=== PATIENT | male | born 2000 | race Caucasian/White ===

== ENCOUNTER 2023-04-03 08:19 | Emergency (ER) | payer OTHER, SELFPAY ==
[2023-04-03 08:21] VITALS: BP 144/90; PULSE 92; TEMP 36.8; O2SAT 98
[2023-04-03 08:25] VITALS: BP 144/90; PULSE 92; RESP 17; TEMP 36.8; O2SAT 98
--- NOTE | 2023-04-03 08:50 | ED.GENADULT ---
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 No numbness or weakness to the hand. Related Data Allergies Allergy/AdvReac Type Severity Reaction Status Date / Time No Known Allergies Allergy Verified 04/03/23 08:24 Review of Systems Review of Systems: All systems reviewed & are unremarkable except as noted in HPI and below Constitutional: Constitutional: Denies fever(s) ENT: Denies dizziness Cardiovascular: Cardiovascular: Denies chest pain Respiratory: Respiratory: Denies dyspnea Exam Const: General: healthy appearing and no acute distress Nutritional Appearance: well nourished Orientation/consciousness: patient oriented x3 Eyes: Conjunctivae: conjunctivae normal Resp: Effort & Inspection: normal respiratory effort Cardio: Rate: regular rate Skin: General skin exam: normal color, no jaundice and no pallor Other: 6 cm full thickness lac to right volar forearm with exposed fat, 2 small cutaneous arterial bleeders and 1 moderate cutaneous venous bleeder. No fascia violation. Neuro: General: patient oriented x3 and moves all extremities Other: MUR intact Extrem: General: no edema Course Vital Signs Vital signs: Vital Signs Temperature 36.8 C 04/03/23 08:21 Pulse Rate 92 04/03/23 08:21 Blood Pressure 144/90 H 04/03/23 08:21 Pulse Oximetry 98 04/03/23 08:21 Oxygen Delivery Room Air 04/03/23 08:21 Temperature 36.8 C 04/03/23 08:25 Pulse Rate 92 04/03/23 08:25 Respiratory Rate 17 04/03/23 08:25 Blood Pressure 144/90 H 04/03/23 08:25 Pulse Oximetry 98 04/03/23 08:25 Oxygen Delivery Room Air 04/03/23 08:25 Procedures Laceration Laceration 1: Date: 04/03/23 Time: 09:25 Site: upper extremity Side (If applicable): right Size (cm): 6 Description: linear and other (full thickness dermis into hypodermal vessels (2 art, 1 vein). No fascia/muscle/tendon involvement. Bleeding controlled with epinephrine injected and direct proximal arterial pressure on brachial artery. Vessels tied off with 4-0 vicryl. ) Local Anesthetic: lidocaine 1% and with epi Amount of anesthesia used (mL): 10 Pre-repair: wound explored, irrigated and deep structures intact ====== Skin Level ====== Skin layer closed with: nylon Size (cm): 3-0 Number of sutures: 11 Technique: simple, interrupted ====== Subcutaneous Layer ====== Subcutaneous layer closed with: vicryl Size: 4-0 Number of sutures: 3 Technique: simple, interrupted ====== Muscle Layer ====== ====== Tendon Layer ====== Dressing: Nonadherent dressing. Procedure well tolerated, no complications. Medical Decision Making MDM Narrative Medical decision making narrative: Intermediate complexity laceration requiring proximal artery pressure and vessel tie off for hemostasis, two layer closure. Repaired, well approximated. no complications. 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 Differential Diagnosis Differential Diagnosis: laceration, contusion, hematoma, no evidence of fracture or retained foreign body Medical Records Medical records reviewed: Yes I reviewed the external patient's medical records. Vital Signs Vital Signs: Vital Signs Temperature 36.8 C 04/03/23 08:21 Pulse Rate 92 04/03/23 08:21 Blood Pressure 144/90 H 04/03/23 08:21 Pulse Oximetry 98 04/03/23 08:21 Oxygen Delivery Room Air 04/03/23 08:21 Temperature 36.8 C 04/03/23 08:25 Pulse Rate 92 04/03/23 08:25 Respiratory Rate 17 04/03/23 08:25 Blood Pressure 144/90 H 04/03/23 08:25 Pul
[2023-04-03 09:42] VITALS: BP 144/90; PULSE 92; RESP 17; TEMP 36.8; O2SAT 98
== END 2023-04-03 09:42 | disposition home or self-care (01) ==
PROVIDERS: Emergency Provider Emergency Medicine
DX: S51.811A Laceration without foreign body of right forearm, initial encounter (principal); W45.8XXA Other foreign body or object entering through skin, initial encounter; Y99.0 Civilian activity done for income or pay
CPT/HCPCS: 12032; 99283

== ENCOUNTER 2024-10-07 17:49 | Emergency (ER) | payer OTHER, SELFPAY ==
--- NOTE | ~2024-10-07 | XR_ITS ---
HISTORY: dropped pallet onto right 1st toe COMPARISON: None TECHNIQUE: 2 views of the right great toe were performed FINDINGS: No acute or subacute fracture. Joint spaces are preserved and alignment is maintained. Soft tissues are unremarkable without radiopaque foreign body or significant calcification. Age-appropriate mineralization. IMPRESSION: No acute fracture or dislocation. Reviewed, dictated and finalized at location A. [employer]
[2024-10-07 18:02] VITALS: BP 138/96; PULSE 78; RESP 16; TEMP 37.1; O2SAT 100
--- NOTE | 2024-10-07 18:03 | ED.LOWEXIN ---
HPI - Extremity Injury (Lower) General Chief Complaint: Extremity Injury, Lower Stated Complaint: INJURED R TOE Time Seen by Provider: 10/07/24 18:03 Source: patient Mode of arrival: ambulatory Limitations: no limitations History of Present Illness HPI Narrative: 24-year-old male presents with complaint of pain and pressure to right great toe. Patient states that he dropped a Pallet on foot this morning around 8:00 a.m.. Ambulatory with slight limp. Reports bruising in her toenail. Has had this in the past and had entire toenail removed. Range of motion and distal neurovascularly intact. All systems reviewed and negative except as noted above. Related Data Allergies Allergy/AdvReac Type Severity Reaction Status Date / Time No Known Allergies Allergy Verified 10/07/24 18:01 Review of Systems Review of Systems: CONSTITUTIONAL: Denies fever, chills, or sweats. EYES: Denies visual changes, redness, or discharge. ENT: Denies rhinorrhea, congestion, sore throat, or otalgia. CARDIOVASCULAR: Denies chest pain, palpitations, or edema. RESPIRATORY: Denies cough or dyspnea. GASTROINTESTINAL: Denies abdominal pain, nausea, vomiting, or diarrhea. GENITOURINARY: Denies dysuria or hematuria. SKIN: Denies rash or itching. MUSCULOSKELETAL: Denies back pain, joint pain, or myalgia. Reports pain to right great toe with blood under toenail. NEUROLOGIC: Denies headache, numbness, or weakness. PSYCHIATRIC: Denies anxiety or depression. All other systems reviewed are negative, except as documented in HPI. PMFSH Comments At time of signature, agree with nursing past medical, surgical, social and family history. There is no relevant family history pertinent to the presenting complaint. Exam Narrative: GENERAL: This is a well-nourished, well-developed patient, in no apparent distress. HEAD: normocephalic, atraumatic. EYES: PERRL. Sclera clear/white. Vision is grossly intact. EARS: External ears normal NOSE: External nose normal NECK: Neck supple, non-tender without lymphadenopathy, masses or thyromegaly. CARDIOVASCULAR: Regular rate and rhythm without murmurs, gallops, or rubs. RESPIRATORY: Clear to auscultation. Breath sounds equal bilaterally. No wheezes, rales, or rhonchi. SKIN: warm, Dry, intact with no suspicious lesions or rash, good texture and turgor. NEURO: awake, alert, and oriented to person, place and time. There were no obvious focal neurologic abnormalities. EXTREMITIES: Tenderness to distal aspect of right great toe. Subungual hematoma noted to right great great toenail. No deformity noted. Distal neurovascularly intact. Mild swelling. Course Course Level of Care: Express Care Visit Vital Signs Vital signs: Vital Signs Temperature 37.1 C 10/07/24 18:02 Pulse Rate 78 10/07/24 18:02 Respiratory Rate 16 10/07/24 18:02 Blood Pressure 138/96 H 10/07/24 18:02 Pulse Oximetry 100 10/07/24 18:02 Temperature 37.1 C 10/07/24 18:02 Pulse Rate 78 10/07/24 18:02 Respiratory Rate 16 10/07/24 18:02 Blood Pressure 138/96 H 10/07/24 18:02 Pulse Oximetry 100 10/07/24 18:02 Reviewed Procedures Other Procedure Procedure 1: Other Procedure: cautery pen used to drain subungual hematoma R great toenail. two punctures made with active bleeding MDM - Extremity Injury (Lower) MDM Narrative Medical decision making narrative: X-ray of right great toe negative for fracture. Small amount bleeding after drainage with Qasim upon of subungual hematoma. Patient continues to have pain. Recommend ibuprofen, elevation, ice. Please be advised this is a medical document. It is intended for [id number] communication. It is written in medical language and may contain unfamiliar abbreviations or verbiage. Medical documents are intended to carry relevant information, facts as evident, and the clinical opinion of the practitioner at the time of the encounter. This report may have been done utilizing a voice recognition system. Attempts have been made to correct errors. However, there may be uncorrected grammatical, spelling, and recognition errors present. The file time of this note does not necessarily represent the time of service. Imaging Data My impression: Agree with radiologist Radiologist's impression: HISTORY: dropped pallet onto right 1st toe COMPARISON: None TECHNIQUE: 2 views of the right great toe were performed FINDINGS: No acute or subacute fracture. Joint spaces are preserved and alignment is maintained. Soft tissues are unremarkable without radiopaque foreign body or significant calcification. Age-appropriate mineralization. IMPRESSION: No acute fracture or dislocation. Discharge Plan Discharge Clinical Impression: Subungual hematoma of great toe of right foot, Contusion of great toe Patient Disposition: Home, Self-Care Condition: Stable Instructions: Subungual Hematoma (ED) Additional Instructions: The x-ray of your right great toe was negative for fracture. Take ibuprofen every 6-8 hours as needed for pain. Take antibiotic as prescribed to prevent infection. Elevate when at rest. Apply ice as needed for pain. Follow-up with your doctor if pain is not improving. For any worsening of your symptoms go to the ER. Patient Language: Mongolian Prescriptions: New cephalexin 500 mg capsule 500 mg PO BID 7 Days Qty: 14 0RF ibuprofen 600 mg tablet 600 mg PO Q6H PRN (Reason: pain) Qty: 30 0RF Follow-up/Referrals: Mariano,Ofelia [Other] Stand Alone Forms: Work/School Release IP Time of Disposition: 18:31
== END 2024-10-07 18:36 | disposition home or self-care (01) ==
PROVIDERS: Emergency Provider Nurse Practitioner Family
DX: S90.211A Contusion of right great toe with damage to nail, initial encounter (principal); W20.8XXA Other cause of strike by thrown, projected or falling object, initial encounter
CPT/HCPCS: 11740; 73660; 99213; G0463